=== PATIENT | male | born 1970 | race Two or more races ===

== ENCOUNTER 2016-07-24 08:05 | Day surgery (SDC) | payer OTHER ==
[~2016-07-24] VITALS: Ht 170.2 cm; Wt 122.5 kg
[2016-07-24] MEDS ORDERED: KETAMINE 500 MG/5 ML VIAL ONE (10:15)
[2016-07-24] MEDS ORDERED: MIDAZOLAM 2 MG/2 ML VIAL ONE (10:15)
[2016-07-24] MEDS ORDERED: ONDANSETRON 4 MG/2 ML VIAL IVP PRN (10:35)
[2016-07-24] MEDS ORDERED: HYDROmorphone 1 MG/ML AMP IVP PRN ×2 (10:35→11:20)
[2016-07-24] MEDS ORDERED: BUPIVACAINE-MPF/EPI 0.25% 30 ML VIAL INJ ONE (10:52)
[2016-07-24] MEDS: BUPIVACAINE-MPF/EPI 0.25% 30 ML VIAL INJ ONE ×2 (10:55→10:56)
[2016-07-24] MEDS ORDERED: HYDROcodone/APAP 5/325 MG 1 TAB TAB PO PRN ×2 (11:20)
[2016-07-24] MEDS ORDERED: HYDROmorphone PFS 2 MG/ML SYR IVP PRN (11:20)
[2016-07-24] MEDS ORDERED: ACETAMINOPHEN 325 MG TAB PO PRN (11:20)
[2016-07-24] MEDS ORDERED: MORPHINE SULFATE 4 MG/ML SYR IV PRN (11:20)
[2016-07-24] MEDS ORDERED: ONDANSETRON 4 MG/2 ML VIAL IV PRN (11:20)
== END 2016-07-24 12:57 | disposition home health service (06) ==
LOC: MDS 08:05 → MMU 08:05 → MDS 12:57
PROVIDERS: ATTEND Surgery
DX: L05.91 Pilonidal cyst without abscess (principal); E66.9 Obesity, unspecified; Z68.41 Body mass index [BMI] 40.0-44.9, adult; I12.9 Hypertensive chronic kidney disease with stage 1 through stage 4 chronic kidney disease, or unspecified chronic kidney disease; E11.22 Type 2 diabetes mellitus with diabetic chronic kidney disease; N18.9 Chronic kidney disease, unspecified; K21.9 Gastro-esophageal reflux disease without esophagitis; F03.90 Unspecified dementia, unspecified severity, without behavioral disturbance, psychotic disturbance, mood disturbance, and anxiety; D64.9 Anemia, unspecified; I25.119 Atherosclerotic heart disease of native coronary artery with unspecified angina pectoris; G47.33 Obstructive sleep apnea (adult) (pediatric); F17.210 Nicotine dependence, cigarettes, uncomplicated
CPT/HCPCS: 11770; 71010; 87070; 87075; 93005; J0690; J2250; J3490; J7060; J7120